=== PATIENT | male | born 1990 | race Hispanic/Latino ===

== ENCOUNTER 2016-11-12 20:02 | Emergency (ER) | payer OTHER ==
[~2016-11-12] VITALS: Ht 165.1 cm; Wt 81.6 kg
[2016-11-12 20:12] VITALS: BP 149/103
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
[2016-11-12] MEDS ORDERED: KEFLEX500 M1 PO (20:46)
[2016-11-12] MEDS ORDERED: BACTRIM DS TAB1 EACH PO (20:46)
== END 2016-11-12 21:20 ==
LOC: ERH 20:02
DX: L03.115 Cellulitis of right lower limb (principal); L02.415 Cutaneous abscess of right lower limb
CPT/HCPCS: 87184; 87070